=== PATIENT | male | born 1955 ===

== ENCOUNTER 2016-09-16 10:25 | Emergency (ER) | payer OTHER ==
--- NOTE | 2016-09-16 11:23 | UC ---
Ofelia Gross Claudia, scribed for Rommel Lora MD on 09/16/16 at 1052 . Knee Pain HPI - HPI Summary HPI Summary: 60 year old male presents to the [facility] with left knee weakness. Pt notes gradual onset of weakness over the past several months, pt denies any trauma to the knee. He states that he has been wearing a brace and walking with a cane to prevent the weakness. Pt notes that he works all day on his feet on a concrete floor. Pt denies any associated Sx of fever, chills, CP, Palpations, SOB, MEHTA. He does admit to occasional right sided back pain since he tries to put most of his weight on his right leg since the left leg is weak. Pt also admits to right and left calf ache. Pt also notes some numbness/tingling to his right foot. - History of Current Complaint Chief Complaint: UCLowerExtremity Stated Complaint: KNEE COMPLAINT Time Seen by Provider: 09/16/16 10:41 Hx Obtained From: Patient Onset/Duration: Gradual Onset, Lasting Weeks, Still Present Character: Aching - weakness Aggravating Factor(s): Nothing Alleviating Factor(s): Nothing Associated Signs And Symptoms: Positive: Weakness - Allergies/Home Medications Allergies/Adverse Reactions: Allergies Allergy/AdvReac Type Severity Reaction Status Date / Time No Known Allergies Allergy Verified 09/16/16 10:35 Home Medications: Home Medications NK [No Home Medications Reported] 09/16/16 [History Confirmed 09/16/16] PMH/Surg Hx/FS Hx/Imm Hx Previously Healthy: Yes - Surgical History Surgical History: None - Family History Known Family History: Positive: Diabetes - Social History Occupation: Employed Full-time Alcohol Use: Rare Substance Use Type: None Smoking Status (MU): Light Every Day Tobacco Smoker Amount Used/How Often: 3-4 per day Review of Systems Constitutional: Negative - NO FEVER, CHILLS Skin: Negative Eyes: Negative ENT: Negative Respiratory: Negative - NO SOB Cardiovascular: Negative - NO CP, PALPITATIONS Gastrointestinal: Negative - NO ABD PAIN Genitourinary: Negative Motor: Negative Neurovascular: Negative Musculoskeletal: Other: - knee pain Neurological: Headache - NO MEHTA, Paresthesia, Numbness Psychological: Negative All Other Systems Reviewed And Are Negative: Yes Physical Exam Triage Information Reviewed: Yes Appearance: Ill-Appearing, Thin Vital Signs: Initial Vital Signs Temp 98.7 F 09/16/16 10:32 Pulse 120 09/16/16 10:32 Resp 20 09/16/16 10:32 BP 229/147 09/16/16 10:32 Pulse Ox 99 09/16/16 10:32 Vital Signs Reviewed: Yes Eyes: Positive: Conjunctiva Clear ENT: Positive: Normal ENT inspection, Hearing grossly normal, Pharynx normal, Other: - DRY MOUTH AND LIPS Neck: Positive: Supple, Nontender, No Lymphadenopathy Respiratory: Positive: Chest non-tender, Lungs clear, Normal breath sounds Cardiovascular: Positive: Tachycardia, Other: - IRR / IRR Abdomen Description: Positive: Nontender, Soft. Negative: CVA Tenderness (R), CVA Tenderness (L), Distended Bowel Sounds: Positive: Present Musculoskeletal Exam: Normal Musculoskeletal: Positive: Strength Intact, Edema @ - BILATERAL LOWER EXT Skin Exam: Normal Diagnostics - EKG Cardiac Rate: Tachycardia - rate: 124 beats/min Cardiac Rhythm: AFib: New - no previous EKG to compare Knee Pain Course/Dx - Course Course Of Treatment: AFIB/ HYPERTENSIVE URGENCY ,. WILL TRANSFER TO [facility] ,. SPOKE TO DR BREEN ABOUT THE THE TRANSFER - Differential Dx/Diagnosis Provider Diagnoses: AFIB. HYPERTENSIVE URGENCY - Physician Notifications Discussed Patient Care With: Discussed care of pt with Dr. Santiago at [facility] whom is aware of transfer Time Discussed With Above Provider: 11:14 Discharge - Discharge Plan Condition: Fair Disposition: TRANS HIGHER LVL OF CARE FAC Discharge Disposition Comment: Transferred to [facility] via EMS for further evaluation. Referrals: No Primary Care Phys,NOPCP [Primary Care Provider] - The documentation as recorded by the Ofelia patterson Claudia accurately reflects the service I personally performed and the decisions made by me, Rommel Lora MD.
[2016-09-16 11:30] VITALS: BP 200/130
== END 2016-09-16 11:30 | disposition short-term general hospital (02) ==
LOC: UCEAST 10:25
DX: I48.91 Unspecified atrial fibrillation (principal); I16.0 Hypertensive urgency; Z72.0 Tobacco use
CPT/HCPCS: 93005; 99203; G0463

== ENCOUNTER 2016-09-16 11:56 | Observation (INO) | payer OTHER ==
[2016-09-16] MEDS ORDERED: NS 0.9% 1000 ML* 1,000 ML IV SCH ×3 (12:00→15:30)
[2016-09-16 12:21] LABS: Hematocrit 46 % (42-52); Hemoglobin 15.8 g/dl (14.0-18.0); Mean Corpuscular HGB Conc 34 g/dl (31-36); Mean Corpuscular Hemoglobin 31 pg (27-31); Mean Corpuscular Volume 92 fL (80-94); Mean Platelet Volume 7 um3 (7.4-10.4); Red Blood Count 5.06 10^6/ul (4.0-5.4); Red Cell Distribution Width 16 % (10.5-15); White Blood Count 11.4 10^3/ul (3.5-10.8)
[2016-09-16 12:26] LABS: Albumin 3.8 g/dL (3.2-5.2); BUN/Creatinine Ratio 27.3 (8-20); C Reactive Protein 7.93 mg/L (< 5.00); Calcium 9.4 mg/dL (8.6-10.3); EGFR African American 56.4 (>60); EGFR Non-African American 43.8 (>60); Globulin 3.5 g/dL (2-4); Magnesium 1.6 mg/dL (1.9-2.7); Potassium 3.2 mmol/L (3.5-5.0); Total Bilirubin 0.7 mg/dL (0.2-1.0); Total Protein 7.3 g/dL (6.4-8.9)
[2016-09-16 12:32] LABS: Troponin I 0.11 ng/mL (<0.04)
[2016-09-16 12:35] LABS: TSH (Thyroid Stimulating Horm) 8.5 mcIU/mL (0.34-5.60)
--- NOTE | 2016-09-16 12:36 | RAD ---
INDICATION: Tachycardia COMPARISON: None TECHNIQUE: An AP portable view obtained at 1215 hours is submitted. FINDINGS: Bones/Soft Tissues: There are no acute bony findings. Cardiomediastinal: The heart and central pulmonary vessels are mildly prominent. There may be a mild component of interstitial congestion. Lungs: There are no focal infiltrates. Pleura: There are no pleural effusions. Other: None IMPRESSION: SUSPECT MILD INTERSTITIAL CONGESTION.
[2016-09-16] MEDS ORDERED: Aspirin Low Dose CHEW TAB* 81 MG PO ONE (13:18)
[2016-09-16] MEDS ORDERED: Diltiazem IV VIAL* 125 MG in D5W 100 ML BAG* 100 ML IV ONE (13:19)
[2016-09-16] MEDS ORDERED: Diltiazem IV* 5 MG/ML 5 ML VIAL (for loading dose/IV Push) (25 MG) IV SLOW PU ONE (13:19)
[2016-09-16] MEDS ORDERED: Furosemide IV* 10 MG/ML 2 ML VIAL (20 MG) IV SLOW PU ONE (13:21)
[2016-09-16 14:02] LABS: Urine Bacteria Absent (Absent); Urine Bilirubin Negative (Negative); Urine Glucose Negative (Negative); Urine Nitrite Negative (Negative)
[2016-09-16] MEDS ORDERED: amLODIPine TAB* 5 MG PO ONE (14:09)
[2016-09-16] MEDS ORDERED: Diltiazem TAB* 30 MG PO ONE ×2 (14:10→14:46)
[2016-09-16] MEDS ORDERED: Acetaminophen TAB* 325 MG PO PRN (14:54)
[2016-09-16] MEDS ORDERED: Magnesium Sulf 4 GM/100 ML IV* 4,000 MG/100 ML BAG IVPB ONE (14:54)
[2016-09-16] MEDS ORDERED: LORazepam TAB(*) 1 MG PO SCH (15:00)
--- NOTE | 2016-09-16 15:16 | RAD ---
HISTORY: Edema COMPARISONS: None relevant TECHNIQUE: Multiple transverse and longitudinal ultrasound images were obtained of the bilateral lower extremities from the level of the common femoral vein inferiorly through to the infrapopliteal veins using grayscale, color Doppler, and spectral Doppler imaging with and without compression and with augmentation. FINDINGS: VEINS: The venous system of the bilateral lower extremities is compressible throughout its course, with normal flow on color Doppler imaging and normal response to augmentation on spectral Doppler imaging. SOFT TISSUES: Unremarkable. OTHER FINDINGS: Also noted is occlusion of the right superficial femoral artery in the midportion IMPRESSION: 1. NO RIGHT LOWER EXTREMITY DEEP VEIN THROMBOSIS. 2. NO LEFT LOWER EXTREMITY DEEP VEIN THROMBOSIS 3. 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
[2016-09-16] MEDS: Potassium Chlor TAB* 20 MEQ TAB.ER PO SCH ×2 (16:11→20:15)
[2016-09-16] MEDS: Thiamine TAB* 100 MG TAB PO SCH (16:11)
[2016-09-16] MEDS: Folic Acid TAB* 1 MG PO SCH (16:11)
[2016-09-16] MEDS: Multivitamins/Minerals TAB PO SCH (16:11)
--- NOTE | 2016-09-16 16:33 | ED ---
Fili Gross Benjamin, scribed for Jose Santiago MD on 09/16/16 at 1322 . Palpitations / Dysrhythmia - HPI Summary HPI Summary: 60yo male comes from for new onset A-fib and ST elevation in EKG. Pt went to originally for left knee weakness, but upon visit, pt was sent to ED for having afib and elevated ST segment. Pt denies CP or any pain in knee. Pt is able to move his left leg but notes some swelling in legs. - History of Current Complaint Chief Complaint: EDDysrhythmPalp Time Seen by Provider: 09/16/16 11:59 Hx Obtained From: Patient Onset/Duration: Sudden Onset, Lasting Hours, Still Present Timing: Constant Severity Initially: Mild Severity Currently: Mild Character: Irregular Aggravating: Nothing Alleviating: Nothing Associated Signs & Symptoms: Negative - Allergy/Home Medications Allergies/Adverse Reactions: Allergies Allergy/AdvReac Type Severity Reaction Status Date / Time No Known Allergies Allergy Verified 09/16/16 10:35 PMH/Surg Hx/FS Hx/Imm Hx Previously Healthy: Yes Infectious Disease History: No Infectious Disease History: Denies: Traveled Outside the [place] in Last 30 Days - Family History Known Family History: Positive: Hypertension, Diabetes - Social History Occupation: Employed Full-time Lives: Alone Alcohol Use: Rare Substance Use Type: Reports: Excessive Caffeine Substance Use Comment - Amount & Last Used: 4 cups first thing this AM, drinks coffee all day Smoking Status (MU): Light Every Day Tobacco Smoker Amount Used/How Often: 3-4 per day Review of Systems Constitutional: Negative Eyes: Negative ENT: Negative Positive: Palpitations. Negative: Chest Pain Respiratory: Negative Gastrointestinal: Negative Genitourinary: Negative Musculoskeletal: Negative Skin: Negative Positive: Weakness - left knee Psychological: Normal All Other Systems Reviewed And Are Negative: Yes Physical Exam Triage Information Reviewed: Yes Vital Signs On Initial Exam: Initial Vitals BP 217/145 09/16/16 12:02 Vital Signs Reviewed: Yes Appearance: Positive: Well-Appearing, No Pain Distress, Well-Nourished Skin: Positive: Warm, Skin Color Reflects Adequate Perfusion, Dry Head/Face: Positive: Normal Head/Face Inspection Eyes: Positive: Normal ENT: Positive: Normal ENT inspection, Hearing grossly normal Neck: Positive: Supple, Nontender Respiratory/Lung Sounds: Positive: Breath Sounds Present, Other - crankles at the base of the lungs Cardiovascular: Positive: IRR - irregularly irregular Abdomen Description: Positive: Nontender, No Organomegaly, Soft Bowel Sounds: Positive: Present Musculoskeletal: Positive: Other - bilateral pedal edema, no calf tenderness Neurological: Positive: Normal - no neurological deficit, Sensory/Motor Intact, Alert, Oriented to Person Place, Time, CN Intact II-III Psychiatric: Positive: Affect/Mood Appropriate - Oliverio Coma Scale Coma Scale Total: 15 Diagnostics - Vital Signs Vital Signs Temp Pulse Resp BP Pulse Ox 09/16/16 13:00 118 28 221/140 97 09/16/16 12:30 106 28 241/131 95 09/16/16 12:22 26 209/132 09/16/16 12:05 98.1 F 102 22 217/145 95 09/16/16 12:03 114 19 96 09/16/16 12:02 217/145 - Laboratory Lab Results: Lab Results 09/16/16 09/16/16 09/16/16 Range/Units 11:15 11:15 11:15 WBC 11.4 H (3.5-10.8) 10^3/ul RBC 5.06 (4.0-5.4) 10^6/ul Hgb 15.8 (14.0-18.0) g/dl Hct 46 (42-52) % MCV 92 (80-94) fL MCH 31 (27-31) pg MCHC 34 (31-36) g/dl RDW 16 H (10.5-15) % Plt Count 168 (150-450) 10^3/ul MPV 7 L (7.4-10.4) um3 Neut % (Auto) 82.2 (38-83) % Lymph % (Auto) 9.4 L (25-47) % [place] % (Auto) 7.4 (1-9) % Eos % (Auto) 0.4 (0-6) % Baso % (Auto) 0.6 (0-2) % Absolute Neuts (auto) 9.4 H (1.5-7.7) 10^3/ul Absolute Lymphs (auto) 1.1 (1.0-4.8) 10^3/ul Absolute Monos (auto) 0.8 (0-0.8) 10^3/ul Absolute Eos (auto) 0 (0-0.6) 10^3/ul Absolute Basos (auto) 0.1 (0-0.2) 10^3/ul Absolute Nucleated RBC 0 10^3/ul Nucleated RBC % 0 INR (Anticoag Therapy) 0.96 (0.89-1.11) APTT 27.2 (26.0-36.3) seconds D-Dimer, Quantitative 430 H (Less Than 230) ng/mL Sodium 135 (133-145) mmol/L Potassium 3.2 L (3.5-5.0) mmol/L Chloride 99 L (101-111) mmol/L Carbon Dioxide 25 (22-32) mmol/L Anion Gap 11 (2-11) mmol/L BUN 44 H (6-24) mg/dL Creatinine 1.61 H (0.67-1.17) mg/dL Est GFR ( Amer) 56.4 (>60) Est GFR (Non-Af Amer) 43.8 (>60) BUN/Creatinine Ratio 27.3 H (8-20) Glucose 132 H (70-100) mg/dL Lactic Acid (0.5-2.0) mmol/L Calcium 9.4 (8.6-10.3) mg/dL Magnesium 1.6 L (1.9-2.7) mg/dL Total Bilirubin 0.70 (0.2-1.0) mg/dL AST 41 H (13-39) U/L ALT 28 (7-52) U/L Alkaline Phosphatase 105 H (34-104) U/L Total Creatine Kinase 132 (10-223) U/L CK-MB (CK-2) 10.2 H (0.6-6.3) ng/mL Troponin I 0.11 H* (<0.04) ng/mL C-Reactive Protein 7.93 H (< 5.00) mg/L B-Natriuretic Peptide ( - 100) pg/mL Total Protein 7.3 (6.4-8.9) g/dL Albumin 3.8 (3.2-5.2) g/dL Globulin 3.5 (2-4) g/dL Albumin/Globulin Ratio 1.1 (1-3) Lipase 13 (11.0-82.0) U/L TSH 8.50 H (0.34-5.60) mcIU/mL 09/16/16 09/16/16 Range/Units 11:15 11:15 WBC (3.5-10.8) 10^3/ul RBC (4.0-5.4) 10^6/ul Hgb (14.0-18.0) g/dl Hct (42-52) % MCV (80-94) fL MCH (27-31) pg MCHC (31-36) g/dl RDW (10.5-15) % Plt Count (150-450) 10^3/ul MPV (7.4-10.4) um3 Neut % (Auto) (38-83) % Lymph % (Auto) (25-47) % [place] % (Auto) (1-9) % Eos % (Auto) (0-6) % Baso % (Auto) (0-2) % Absolute Neuts (auto) (1.5-7.7) 10^3/ul Absolute Lymphs (auto) (1.0-4.8) 10^3/ul Absolute Monos (auto) (0-0.8) 10^3/ul Absolute Eos (auto) (0-0.6) 10^3/ul Absolute Basos (auto) (0-0.2) 10^3/ul Absolute Nucleated RBC 10^3/ul Nucleated RBC % INR (Anticoag Therapy) (0.89-1.11) APTT (26.0-36.3) seconds D-Dimer, Quantitative (Less Than 230) ng/mL Sodium (133-145) mmol/L Potassium (3.5-5.0) mmol/L Chloride (101-111) mmol/L Carbon Dioxide (22-32) mmol/L Anion Gap (2-11) mmol/L BUN (6-24) mg/dL Creatinine (0.67-1.17) mg/dL Est GFR ( Amer) (>60) Est GFR (Non-Af Amer) (>60) BUN/Creatinine Ratio (8-20) Glucose (70-100) mg/dL Lactic Acid 1.8 (0.5-2.0) mmol/L Calcium (8.6-10.3) mg/dL Magnesium (1.9-2.7) mg/dL Total Bilirubin (0.2-1.0) mg/dL AST (13-39) U/L ALT (7-52) U/L Alkaline Phosphatase (34-104) U/L Total Creatine Kinase (10-223) U/L CK-MB (CK-2) (0.6-6.3) ng/mL Troponin I (<0.04) ng/mL C-Reactive Protein (< 5.00) mg/L B-Natriuretic Peptide 2865 H ( - 100) pg/mL Total Protein (6.4-8.9) g/dL Albumin (3.2-5.2) g/dL Globulin (2-4) g/dL Albumin/Globulin Ratio (1-3) Lipase (11.0-82.0) U/L TSH (0.34-5.60) mcIU/mL Result Diagrams: 09/16/16 11:15 09/16/16 11:15 Lab Statement: Any lab studies that have been ordered have been reviewed, and results considered in the medical decision making process. - Radiology CXR Xray Interpretation: Positive (See Comments) - IMPRESSION: SUSPECT MILD INTERSTITIAL CONGESTION. Radiology Interpretation Completed By: Radiologist - EKG 1207. Cardiac Rate: Tachycardia - 103bpm EKG Rhythm: Atrial Fibrillation - rapid afib Ectopy: : PVCs EKG Interpretation: LVH Course/Dx - Course Course Of Treatment: discussed with Dr. Terrazas at 1313. ADMIT HOSPITALIST STABLE. - Diagnoses Provider Diagnoses: New onset a-fib, CHF (congestive heart failure), Troponin level elevated - Critical Care Time Critical Care Time: 30-74 min Discharge - Discharge Plan Condition: Stable Disposition: ADMITTED TO [facility] The documentation as recorded by the Fili patterson Benjamin accurately reflects the service I personally performed and the decisions made by me, Jose Santiago MD.
--- NOTE | 2016-09-16 16:44 | ECHO ---
Patient: JULITA OBRIEN [facility] Rec#: [id number] : 1955 Date: 09/16/2016 Age: 60y Height: 177.8 cm / 70.0 in Weight: 72.57 kg / 159.9 lbs Sex: M BSA: 1.9 Room#: 445 Admit Date#: 09/16/2016 Type: Inpatient Referring: Stephy Azevedo NP Reading: Justin Morse MD [employer]: Shakira Echeverria RDCS,RDMS Transthoracic Echocardiogram Indication: AFIB BP: 152/137 HR: 78 Rhythm: A-Fib Findings History: Smoker Technical Comments: The study quality is fair. Completed 1630 Left Ventricle: The left ventricular chamber size is normal. Moderate to severe concentric left ventricular hypertrophy is observed. There is global hypokinesis of the left ventricle with minor regional variation. There is moderate to severely decreased left ventricular systolic function. The estimated ejection fraction is 30-35%. There is septal flattening of the interventricular septum consistent with right ventricular volume or pressure overload. The assessment of diastolic function is non-diagnostic. Left Atrium: The left atrium is severely dilated. Right Ventricle: The right ventricle is mild to moderately dilated. The right ventricular global systolic function is moderately reduced. Right Atrium: The right atrial cavity size is severely dilated. Atrial septal defect is demonstrated by color Doppler. Aortic Valve: The aortic valve is trileaflet. The aortic valve leaflets are mildly thickened. There is moderate thickening of the right coronary cusp. There is a trace of aortic regurgitation. There is no evidence of aortic stenosis. Mitral Valve: There is mitral annular calcification. The mitral valve leaflets are mildly thickened. There is a trace of mitral regurgitation. There is no evidence of mitral stenosis. Tricuspid Valve: The tricuspid valve leaflets are normal. There is moderate tricuspid regurgitation. The right ventricular systolic pressure is estimated at 61 mmHg. There is evidence of severe pulmonary hypertension. Pulmonic Valve: There is no evidence of pulmonic valve thickening. There is mild pulmonic regurgitation. Pericardium: There is no significant pericardial effusion. Aorta: The aortic root appears normal. There is no dilatation of the aortic arch. Pulmonary Artery: The main pulmonary artery is not well visualized. Venous: The inferior vena cava is dilated. There is less than 50% respiratory change in the inferior vena cava dimension. Summary: There was not any prior study for comparison. Conclusions Moderate to severe concentric left ventricular hypertrophy is observed. There is global hypokinesis of the left ventricle with minor regional variation. There is moderate to severely decreased left ventricular systolic function. The estimated ejection fraction is 30-35%. There is septal flattening of the interventricular septum consistent with right ventricular volume or pressure overload. The right ventricular global systolic function is moderately reduced. The right atrial cavity size is severely dilated. Atrial septal defect is demonstrated by color Doppler. The aortic valve leaflets are mildly thickened. There is a trace of aortic regurgitation. The mitral valve leaflets are mildly thickened. There is a trace of mitral regurgitation. There is moderate tricuspid regurgitation. There is evidence of severe pulmonary hypertension. There is no significant pericardial effusion. report called to Stephy Azevedo NP Measurements Name Value Normal Range RVIDd (AP) 2D 3.9 cm (0.9 - 2.6) RVDdMajor (2D) 4.4 cm (2.2 - 4.4) RAd ISD 4CH 6 cm (3.4 - 4.9) RA (A4C)W 7.2 cm (2.9 - 4.6) IVSd (2D) 1.9 cm (0.6 - 1) LVPWd (2D) 1.9 cm (0.6 - 1) LVIDd (2D) 3.8 cm (3.6 - 5.4) LVIDs (2D) 3.3 cm - LV FS (2D) 12 % (25 - 45) Aortic Annulus 2 cm (1.4 - 2.6) Ao root diameter (2D) 2.3 cm (2.1 - 3.5) Ascending Ao 2.4 cm (2.1 - 3.4) Aortic arch 2 cm (1.8 - 3.4) LA dimension (AP) 2D 5 cm (2.3 - 3.8) LAd ISD 4CH 7.2 cm (2.9 - 5.3) LA ISD 4CH W 4.6 cm (2.5 - 4.5) Name Value Normal Range LA ESV SP 4CH (A/L) 91.44 ml - LA ESV SP 2CH (A/L) 103.17 ml - LA ESV BP (A/L) 102.49 ml - LA ESV BP (A/L) index 54 ml/m2 - LA ESV SP 4CH (MOD) 86.54 ml - LA ESV SP 2CH (MOD) 100.3 ml - Name Value Normal Range MV E-wave Vmax 1 m/sec - MV deceleration time 152.3 msec - LV lateral e' Vmax 0.04 m/sec - LV E:e' lateral ratio 25 ratio - Name Value Normal Range AV Vmax 1 m/sec - AV peak gradient 4 mmHg - LVOT Vmax 0.6 m/sec - LVOT peak gradient 1.4 mmHg - Name Value Normal Range TR Vmax 3.4 m/sec - TR peak gradient 46 mmHg - RAP 15 mmHg - RVSP 61 mmHg - IVC diameter 2.2 cm - Name Value Normal Range PV Vmax 1 m/sec - PV peak gradient 4 mmHg -
--- NOTE | 2016-09-16 17:19 | RAD ---
Indication: Atrial fibrillation. Elevated d-dimer. Renal insufficiency precludes CT angiogram. Comparison: Chest radiograph of the same date. Bilateral lower extremity venous ultrasound of the same date without evidence for DVT. Technique: Following administration of 10.270 mCi xenon-133 by inhalation anterior and posterior ventilation images were obtained. Following the administration of 6.180 mCi of Tc-99m macroaggregated albumin, perfusion images were obtained in multiple projections. Report: The ventilation pattern is uniform with evidence for mild air trapping. Negative for segmental or subsegmental perfusion defects. IMPRESSION: 1. No perfusion defects evident to raise concern for pulmonary embolism. 2. Bilateral air trapping indicating obstructive lung disease. 3. Prominent central pulmonary vasculature with peripheral attenuation suggests probable pulmonary arterial hypertension.
[2016-09-16] MEDS: Diltiazem TAB* 60 MG PO SCH (17:30)
[2016-09-16] MEDS ORDERED: Rivaroxaban TAB(*) 20 MG TAB PO SCH (18:00)
[2016-09-16] MEDS ORDERED: hydrALAZINE IV* 20 MG/ML VIAL IV SLOW PU PRN (22:43)
[2016-09-17] MEDS: Diltiazem TAB* 60 MG PO SCH ×3 (00:14→11:37)
--- NOTE | 2016-09-17 03:12 | HP ---
HISTORY AND PHYSICAL: DATE OF ADMISSION: 09/16/16 PRIMARY CARE PHYSICIAN: None. ATTENDING PHYSICIAN: Dr. Armani Portillo * (dictation provided by Stephy Azevedo NP). CHIEF COMPLAINT: AFib. HISTORY OF PRESENT ILLNESS: Mr. Lopez is a 60-year-old male with no known past medical history as he is not followed with medical care, who originally presented to [facility] with concern of left knee weakness. Mr. 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 On arrival to [facility], the patient was found to be in atrial fibrillation with a heart rate of about 120 with a blood pressure running systolically at least 220. The patient was immediately transferred to [facility]. Mr. Lopez states that he has had no complaints. He does report that he does have feel of rapid heart rate with palpitations at times but he felt that this was just normal part of aging. He denies any chest pain with activity. He denies significant dyspnea with exertion. He has no nausea or abdominal pain. He has been eating and drinking normally. He does report some swelling to bilateral lower extremities, which he uses compression stockings for. He reports having been a smoker and taking significant amount of alcohol in prior years but states he has not drank anything this year and is only smoking less than 5 cigarettes per day. In the emergency room, the patient was confirmed to be in atrial fibrillation with heart rate about 120. He responded well to Cardizem bolus and Cardizem drip with heart rate into the 70s. However, his blood pressure remained elevated as high as 220. Chest x-ray showed concern for pulmonary vascular congestion. Venous Doppler studies showed concern for occlusion of the right superficial femoral artery in the mid portion. Labs showed essentially normal white blood cell count at 11.4. D- dimer was elevated to 430. His potassium is low at 3.2 as well as his magnesium, which is at 1.6. His BUN and creatinine are elevated to 44 and 1.61 respectively. His troponin is 0.11. CRP 7.93. BNP 2865. PAST MEDICAL HISTORY: None as the patient does not follow medical care. SOCIAL HISTORY: The patient is a current smoker but states he has cut back dramatically and smoking less than 5 cigarettes per day. He also states he used to drink alcohol very heavily but has not done so in the past year. He lives alone. He reports that his sister, Jena Jones, would be the healthcare proxy. REVIEW OF SYSTEMS: A 14-point review of systems was completed with Mr. Lopez and all those not mentioned above were negative. PHYSICAL EXAMINATION GENERAL: Mr. Lopez is sitting up in the bed. He is in no acute distress. VITAL SIGNS: Temperature 98.4, heart rate 81, respiratory rate 16, O2 saturation 99% on room air, and blood pressure 160/90. LUNGS: Clear to auscultation bilaterally with no accessary muscle use and good aeration. HEART: S1, S2 and irregular. There is no murmur, rub, or gallop appreciated. ABDOMEN: Soft and nontender with bowel sounds positive x4. EXTREMITIES: The patient has very trace edema to bilateral lower extremities. Pulses are strong with Doppler. NEUROLOGIC: He is alert, he is oriented x3. He moves all extremities equally. There is no facial asymmetry or focal weakness. Extraocular movements are intact. SKIN: Intact. DIAGNOSTIC STUDIES/LAB DATA: Sodium 135, potassium 3.2, chloride 99, serum bicarbonate 25, BUN 44, creatinine 1.61, glucose 132, lactic acid 1.8, magnesium 1.6. Troponin 0.11. CRP 7.93. BNP 2865. WBC 11.4, hemoglobin 15.8 , hematocrit 46, platelet count 168. D-dimer 430. Urine shows 3+ protein. ASSESSMENT AND PLAN: Mr. Lopez is a 60-year-old male who has not followed with medical care, who presents today to the hospital from [facility] after being evaluated there for left knee weakness, found to have atrial fibrillation and severe hypertension. He is asymptomatic on both counts. Our plans are for observation in the hospital for the followin. Atrial fibrillation: The patient responded well to Cardizem and will switch over to Cardizem orally now. Plan to treat with 60 mg q.6 hours and adjust as needed both for heart rate and blood pressure control. His risk factors for AFib are multiple. He has known history of smoking. He reports drinking significant amount of caffeine on a regular basis. He does deny drinking alcohol with me today but I do continue to have a suspicion that perhaps he is a continued drinker. He also has a low potassium and low magnesium. I have counseled him about decrease in his caffeine intake and also any alcohol he might be drinking. Plan to replete his potassium and magnesium. He will have a transthoracic echocardiogram. I have counseled him about smoking cessation. The patient's CHADS VASc2 score on arrival is only 1 as he has only known history of hypertension. We will have to re- evaluate this closely after his echocardiogram as if he were to have CHF, he would qualify for anticoagulation for stroke prevention. 2. Hypertension: The patient's blood pressure is quite elevated but he is asymptomatic. He has had Cardizem orally and I have also added on amlodipine. Additional agents can be added as needed. On last check, his systolic blood pressure was running in the 180s. Again we are checking transthoracic echocardiogram as I am quite concerned that he will have a significant cardiomyopathy with this uncontrolled hypertension long term care phlebotomist. 3. Elevated troponin. The patient's troponin is 0.11. He is asymptomatic. I questioned whether or not this could be related to demand ischemia in the setting of severe hypertension and uncontrolled AFib. I plan to trend that. Patient will have an echocardiogram and he will be monitored on Telemetry. Plan to add on lipid profile. 4. Hyperglycemia. Patient's blood sugar is slightly elevated to 132, plan to add on hemoglobin A1c. 5. Kidney disease. Patient's BUN and creatinine are elevated. I suspect this is likely reflective of chronic kidney disease but we will need to trend that. 6. Question of congestive heart failure. Patient's BNP is elevated at 2865 and his chest x-ray shows mild pulmonary vascular congestion. Patient is asymptomatic on my examination today. He is getting a transthoracic echocardiogram. He did receive 20 mg of Lasix in the ED. Plan to continue with that based on the clinical course. 7. Occlusion to femoral artery. The patient has warm bilateral lower extremities with positive pulses. I suspect this is chronic peripheral vascular disease and see no evidence of acute limb ischemia. Patient will be encouraged to follow up outpatient with Vascular Surgery for further evaluation. 8. Deep venous thrombosis prophylaxis with heparin subcu. 9. Disposition: To Telemetry. TIME SPENT: Approximately 75 minutes was spent in the admission of this patient , more than half the time spent with the patient at the bedside reviewing the events leading up to this hospitalization, performing the physical examination, reviewing the plan of care. STEPHY AZEVEDO, PROC TECH [id number]/[facility] #: [id number] [facility] PSYCH[facility]RIC CENTERKarl
[2016-09-17 06:18] LABS: BUN/Creatinine Ratio 29.4 (8-20); Calcium 8.8 mg/dL (8.6-10.3); EGFR African American 79.9 (>60); EGFR Non-African American 62.1 (>60); HDL Cholesterol 35.9 mg/dL; Magnesium 2.2 mg/dL (1.9-2.7); Potassium 3.5 mmol/L (3.5-5.0)
[2016-09-17] MEDS: Multivitamins/Minerals TAB PO SCH (08:04)
[2016-09-17] MEDS: Thiamine TAB* 100 MG TAB PO SCH (08:04)
[2016-09-17] MEDS: Folic Acid TAB* 1 MG PO SCH (08:05)
[2016-09-17] MEDS ORDERED: Potassium Chlor TAB* 20 MEQ TAB.ER PO ONE (08:51)
[2016-09-17] MEDS ORDERED: Aspirin TAB* 325 MG PO SCH (09:00)
[2016-09-17] MEDS ORDERED: amLODIPine TAB* 5 MG PO SCH (09:00)
[2016-09-17] MEDS ORDERED: Furosemide TAB* 20 MG PO SCH (09:00)
--- NOTE | 2016-09-17 10:30 | PN ---
Subjective Date of Service: 09/17/16 Interval History: Mr. Lopez states that he is feeling quite well though he remains shocked about the heart problems discovered during this hospitalizations. He denies chest pain, SOB, nausea, or abdominal pain. He is eager to get home to shower and shave. Objective Active Medications: Acetaminophen (Tylenol Tab*) 650 mg PO Q4H PRN Amlodipine Besylate (Norvasc Tab*) 5 mg PO DAILY [facility] Aspirin (Aspirin Tab*) 325 mg PO DAILY [facility] Diltiazem HCl (Cardizem Tab*) 60 mg PO Q6HR [facility] Folic Acid (Folvite Tab*) 1 mg PO DAILY [facility] Furosemide (Lasix Tab*) 20 mg PO DAILY [facility] Hydralazine HCl (Apresoline Iv*) 10 mg IV SLOW PU Q6H PRN Lorazepam (Ativan Tab(*)) 0 mg PO .PER WAM SCORE [facility] Multivitamins/Minerals (Theragran/Minerals Tab*) 1 tab PO DAILY [facility] Rivaroxaban (Xarelto (*)) 20 mg PO DAILY@1800 [facility] Thiamine HCl (Vitamin B-1 Tab*) 100 mg PO DAILY [facility] Vital Signs 09/16/16 09/16/16 09/16/16 13:36 13:41 13:50 Temperature Pulse Rate 78 74 72 Respiratory 19 22 23 Rate Blood Pressure 150/104 196/124 217/114 (mmHg) O2 Sat by Pulse 95 95 95 Oximetry 09/16/16 09/16/16 09/16/16 14:00 14:10 14:28 Temperature Pulse Rate 74 84 76 Respiratory 27 22 20 Rate Blood Pressure 185/105 217/130 (mmHg) O2 Sat by Pulse 95 95 97 Oximetry 09/16/16 09/16/16 09/16/16 14:30 14:40 14:48 Temperature Pulse Rate 77 93 88 Respiratory 24 16 20 Rate Blood Pressure 205/130 152/137 152/137 (mmHg) O2 Sat by Pulse 96 93 Oximetry 09/16/16 09/16/16 09/16/16 14:49 15:07 16:06 Temperature 97.6 F 98.4 F Pulse Rate 84 75 Respiratory 19 20 19 Rate Blood Pressure 213/114 203/123 (mmHg) O2 Sat by Pulse 96 95 Oximetry 09/16/16 09/16/16 09/16/16 17:29 17:35 19:38 Temperature 98.1 F 98.4 F 98.0 F Pulse Rate 81 81 70 Respiratory 14 16 20 Rate Blood Pressure 160/90 179/102 (mmHg) O2 Sat by Pulse 99 99 96 Oximetry 09/16/16 09/16/16 09/16/16 20:00 21:45 22:14 Temperature 97.9 F Pulse Rate 75 Respiratory 20 20 Rate Blood Pressure 204/125 210/110 (mmHg) O2 Sat by Pulse 100 Oximetry 09/16/16 09/17/16 09/17/16 23:16 01:09 03:15 Temperature 97.9 F 98.2 F 98.2 F Pulse Rate 72 78 68 Respiratory 20 20 20 Rate Blood Pressure 178/102 186/116 142/81 (mmHg) O2 Sat by Pulse 98 99 97 Oximetry 09/17/16 09/17/16 05:14 07:56 Temperature 98.1 F 98.8 F Pulse Rate 69 70 Respiratory 20 20 Rate Blood Pressure 146/78 180/92 (mmHg) O2 Sat by Pulse 98 97 Oximetry Oxygen Devices in Use Now: None Appearance: Male sitting up in chair in NAD Eyes: No Scleral Icterus Ears/Nose/Mouth/Throat: Mucous Membranes Moist Neck: Trachea Midline Respiratory: Symmetrical Chest Expansion and Respiratory Effort, Clear to Auscultation Cardiovascular: NL Sounds; No Murmurs; No JVD, - - +1 edema BLE Abdominal: NL Sounds; No Tenderness; No Distention Lymphatic: No Cervical Adenopathy Skin: No Rash or Ulcers Neurological: Alert and Oriented x 3, NL Muscle Strength and Tone Nutrition: Taking PO's Result Diagrams: 09/16/16 11:15 09/17/16 05:39 Additional Lab and Data: Lab Results 09/16/16 09/16/16 09/16/16 Range/Units 11:15 11:15 11:15 WBC 11.4 H (3.5-10.8) 10^3/ul RBC 5.06 (4.0-5.4) 10^6/ul Hgb 15.8 (14.0-18.0) g/dl Hct 46 (42-52) % MCV 92 (80-94) fL MCH 31 (27-31) pg MCHC 34 (31-36) g/dl RDW 16 H (10.5-15) % Plt Count 168 (150-450) 10^3/ul MPV 7 L (7.4-10.4) um3 Neut % (Auto) 82.2 (38-83) % Lymph % (Auto) 9.4 L (25-47) % [place] % (Auto) 7.4 (1-9) % Eos % (Auto) 0.4 (0-6) % Baso % (Auto) 0.6 (0-2) % Absolute Neuts (auto) 9.4 H (1.5-7.7) 10^3/ul Absolute Lymphs (auto) 1.1 (1.0-4.8) 10^3/ul Absolute Monos (auto) 0.8 (0-0.8) 10^3/ul Absolute Eos (auto) 0 (0-0.6) 10^3/ul Absolute Basos (auto) 0.1 (0-0.2) 10^3/ul Absolute Nucleated RBC 0 10^3/ul Nucleated RBC % 0 INR (Anticoag Therapy) 0.96 (0.89-1.11) APTT 27.2 (26.0-36.3) seconds D-Dimer, Quantitative 430 H (Less Than 230) ng/mL Sodium 135 (133-145) mmol/L Potassium 3.2 L (3.5-5.0) mmol/L Chloride 99 L (101-111) mmol/L Carbon Dioxide 25 (22-32) mmol/L Anion Gap 11 (2-11) mmol/L BUN 44 H (6-24) mg/dL Creatinine 1.61 H (0.67-1.17) mg/dL Est GFR ( Amer) 56.4 (>60) Est GFR (Non-Af Amer) 43.8 (>60) BUN/Creatinine Ratio 27.3 H (8-20) Glucose 132 H (70-100) mg/dL Lactic Acid (0.5-2.0) mmol/L Calcium 9.4 (8.6-10.3) mg/dL Magnesium 1.6 L (1.9-2.7) mg/dL Total Bilirubin 0.70 (0.2-1.0) mg/dL AST 41 H (13-39) U/L ALT 28 (7-52) U/L Alkaline Phosphatase 105 H (34-104) U/L Total Creatine Kinase 132 (10-223) U/L CK-MB (CK-2) 10.2 H (0.6-6.3) ng/mL Troponin I 0.11 H* (<0.04) ng/mL C-Reactive Protein 7.93 H (< 5.00) mg/L B-Natriuretic Peptide ( - 100) pg/mL Total Protein 7.3 (6.4-8.9) g/dL Albumin 3.8 (3.2-5.2) g/dL Globulin 3.5 (2-4) g/dL Albumin/Globulin Ratio 1.1 (1-3) Lipase 13 (11.0-82.0) U/L TSH 8.50 H (0.34-5.60) mcIU/mL 09/16/16 09/16/16 Range/Units 11:15 11:15 WBC (3.5-10.8) 10^3/ul RBC (4.0-5.4) 10^6/ul Hgb (14.0-18.0) g/dl Hct (42-52) % MCV (80-94) fL MCH (27-31) pg MCHC (31-36) g/dl RDW (10.5-15) % Plt Count (150-450) 10^3/ul MPV (7.4-10.4) um3 Neut % (Auto) (38-83) % Lymph % (Auto) (25-47) % [place] % (Auto) (1-9) % Eos % (Auto) (0-6) % Baso % (Auto) (0-2) % Absolute Neuts (auto) (1.5-7.7) 10^3/ul Absolute Lymphs (auto) (1.0-4.8) 10^3/ul Absolute Monos (auto) (0-0.8) 10^3/ul Absolute Eos (auto) (0-0.6) 10^3/ul Absolute Basos (auto) (0-0.2) 10^3/ul Absolute Nucleated RBC 10^3/ul Nucleated RBC % INR (Anticoag Therapy) (0.89-1.11) APTT (26.0-36.3) seconds D-Dimer, Quantitative (Less Than 230) ng/mL Sodium (133-145) mmol/L Potassium (3.5-5.0) mmol/L Chloride (101-111) mmol/L Carbon Dioxide (22-32) mmol/L Anion Gap (2-11) mmol/L BUN (6-24) mg/dL Creatinine (0.67-1.17) mg/dL Est GFR ( Amer) (>60) Est GFR (Non-Af Amer) (>60) BUN/Creatinine Ratio (8-20) Glucose (70-100) mg/dL Lactic Acid 1.8 (0.5-2.0) mmol/L Calcium (8.6-10.3) mg/dL Magnesium (1.9-2.7) mg/dL Total Bilirubin (0.2-1.0) mg/dL AST (13-39) U/L ALT (7-52) U/L Alkaline Phosphatase (34-104) U/L Total Creatine Kinase (10-223) U/L CK-MB (CK-2) (0.6-6.3) ng/mL Troponin I (<0.04) ng/mL C-Reactive Protein (< 5.00) mg/L B-Natriuretic Peptide 2865 H ( - 100) pg/mL Total Protein (6.4-8.9) g/dL Albumin (3.2-5.2) g/dL Globulin (2-4) g/dL Albumin/Globulin Ratio (1-3) Lipase (11.0-82.0) U/L TSH (0.34-5.60) mcIU/mL Assess/Plan/Problems-Billing Assessment: Mr. Lopez is a 60 yo male with no known PMH as he has not followed with medical care who was admitted on 09/16/16 after being assessed at [facility] for left knee weakness when it was found that he had afib with RVR and uncontrolled hypertension with SBP 220s. - Patient Problems (1) Afib Comment: - Rate controlled on oral cardizem. Has remained asymptomatic throughout. - Xarelto started for CHADS-vasc score of 2 (htn and chf). - Echo found ASD with severe pulm hypertension and severe LVH. Suspect this plus his high caffeine intake and hypokalemia/hypomagnesemia contributed to afib. - Will need close follow up with Cardiology outpatient. (2) CHF (congestive heart failure) Comment: - Patient states that he is asymptomatic, had believed that decreased exercise tolerance just reflective of getting older. - EF found to be 30-35% with severe LVH and severe pulmonary hypertension, likely secondary to systemic htn and ASD respectively. - Continue low dose lasix given dramatically elevated BNP, pulmonary vascular congestion noted on xray, and lower extremity edema. - Start metoprolol and lisinopril. - Patient will need close follow up with Cardiology. We are also helping to arrange a PCP for him prior to discharge. - (3) Hypertension Comment: - BP elevated but much improved. - Continue cardizem, amlodipine, low dose metoprolol, and low dose lisinopril. - Patient will need close follow up with cardiology. (4) Pulmonary hypertension Comment: - Asymptomatic, no O2 requirement. - Patient advised about severe pulm hypertension. Plan for close follow up with cardiology. May benefit from pulmonology follow up at some point. (5) ASD (atrial septal defect) Comment: - Asymptomatic. Follow up cardiology. (6) Full code status (7) DVT prophylaxis Comment: - xarelto. Status and Disposition: OBV. Discharge to home with planned follow up with PCP and cardiology.
[2016-09-17] MEDS ORDERED: Metoprolol Tartrate TAB* 25 MG PO SCH (11:00)
[2016-09-17] MEDS ORDERED: Lisinopril TAB* 5 MG PO SCH (11:00)
[2016-09-17] MEDS ORDERED: Diltiazem CD CAP* 240 MG PO ONE (12:10)
[2016-09-17 16:57] VITALS: BP 158/90
--- NOTE | 2016-09-18 08:40 | DS ---
DISCHARGE SUMMARY: DATE OF ADMISSION: 09/16/16 DATE OF DISCHARGE: 09/17/16 PRIMARY CARE PHYSICIAN: To be arranged. ATTENDING PHYSICIAN: Dr. Aldo Portillo* (dictation provided by Clayton Azevedo NP ) PRIMARY DIAGNOSES: 1. Atrial fibrillation with rapid ventricular response, now rate controlled. 2. Severe uncontrolled hypertension. 3. New systolic congestive heart failure with left ventricular hypertrophy. 4. Atrial septal defect. 5. Severe pulmonary hypertension. 6. Suspected chronic CKD. MEDICATIONS AT THE TIME OF DISCHARGE: 1. Diltiazem CD 240 mg p.o. daily. 2. Furosemide 20 mg p.o. daily. 3. Lisinopril 5 mg p.o. daily. 4. Metoprolol tartrate 12.5 mg p.o. q. 12 hours. 5. Xarelto 20 mg p.o. daily. 6. Amlodipine 5 mg p.o. daily. HOSPITAL COURSE: Mr. Lopez is a 60-year-old male with no known past medical history, has not followed with medical care, who presented to [facility] on 09/15/16 out of concern for weakness in his left knee. While there, he was found to be in atrial fibrillation with rapid ventricular response and had severe uncontrolled hypertension. Mr. Lopez presented to the emergency room where his heart rate was found to be in the 120s and systolic blood pressure was in the 220s. Mr. Lopez was admitted to the hospital. He was initially on a Cardizem drip, but was quickly transitioned to oral Cardizem with good control of his rate. His blood pressure remained elevated, and he is now on amlodipine as well as long-acting diltiazem. He had a transthoracic echocardiogram which was read as follows: "Moderate to severe concentric left ventricular hypertrophy is observed. There is global hypokinesis of the left ventricle with minor regional variation. There is moderate to severely decreased left ventricular systolic function. The estimated ejection fraction is 30 to 35% with septal flattening of the intraventricular septum consistent with right ventricular volume or pressure overload. The right ventricular global systolic function is moderately reduced. The right atrial cavity size is severely dilated. Atrial septal defect is demonstrated by color Doppler. The aortic valve leaflets are mildly thickened. There is trace of aortic regurgitation. The mitral valve leaflets are mildly thickened. There is trace of mitral regurgitation. There is moderate tricuspid regurgitation. There is evidence of severe pulmonary hypertension. There is no significant pericardial effusion." Given that the patient had hypertension and newly-diagnosed congestive heart failure, he has CHADs-VASc2 score of 2 and, therefore, was started on Xarelto. Mr. Lopez' workup included a venous Doppler study to the bilateral lower extremities due to elevated D-dimer on arrival of 430. The Doppler study was read as follows: "No right or left lower extremity DVT. There is occlusion of the right superficial femoral artery in the mid portion." On assessment, patient had warm bilateral lower extremities with positive pulses via the bedside Doppler. He reported having long-term swelling to bilateral lower extremities that was chronic in nature. I suspect that the clot noted on the femoral artery is chronic, related to peripheral vascular disease. Patient also had a VQ lung scan. A CTA of the chest was not possible as patient's initial BUN and creatinine were elevated at 44 and 1.61 respectively. The VQ scan was read as follows: "No perfusion defects evident to raise concern for pulmonary embolism. Bilateral air trapping indicating obstructive lung disease , prominent central pulmonary vasculature with peripheral attenuation suggests probable pulmonary arterial hypertension." In summary, it appears that Mr. Lopez has an atrial septal defect which led to severe pulmonary hypertension. He has severe chronic uncontrolled hypertension which has led to significant left ventricular hypertrophy. His AFib is likely also exacerbated by the fact that he drinks large amounts of caffeine daily, has low potassium and has low magnesium. His electrolytes were repleted during the hospitalization and I have counseled him about decreasing his caffeine use. I also suspect that he has COPD with his jail history of smoking. Despite these multiple new medical problems, Mr. Lopez is feeling quite well. From his perspective, he is asymptomatic other than having some lower extremity edema at times. He will be discharged to home on new medications as mentioned above for AFib, CHF, and hypertension. Prior to his admission, he did not have a primary care physician, but our team is looking to set that up for him, and I have strongly encouraged him to follow up with Cardiology as well. DISPOSITION: Home. DIET: Low salt. ACTIVITY: As tolerated. FOLLOWUP PLANS: 1. Please followup with primary care physician as arranged for your prior to discharge. 2. Please followup with Cardiology; patient has been instructed to make an appointment. TIME SPENT: Approximately 75 minutes were spent in the discharge of this patient, more than half of the time was spent with the patient at the bedside reviewing the events leading up to this hospitalization, performing the physical examination, and reviewing my plan of care. CLAYTON AZEVEDO NP [id number]/[facility] #: [id number] JOSÉ MIGUEL
== END 2016-09-17 17:05 | disposition home or self-care (01) ==
LOC: ED 11:56 → MEDTELE 13:32
PROVIDERS: ADMIT Internal Medicine; ATTEND Internal Medicine
DX: I48.91 Unspecified atrial fibrillation (principal); I10 Essential (primary) hypertension; I50.20 Unspecified systolic (congestive) heart failure; R74.8 Abnormal levels of other serum enzymes; Q21.1 Atrial septal defect; I27.2 Other secondary pulmonary hypertension; N28.9 Disorder of kidney and ureter, unspecified; I51.7 Cardiomegaly; I77.1 Stricture of artery; R60.9 Edema, unspecified; Z79.899 Other long term (current) drug therapy; F17.210 Nicotine dependence, cigarettes, uncomplicated; Z79.01 Long term (current) use of anticoagulants
CPT/HCPCS: 36415; 71010; 78582; 80048; 80053; 80061; 81003; 81015; 82550; 82553; 83036; 83605; 83690; 83735; 83880; 84443; 84484; 85025; 85379; 85610; 85730; 86140; 93005; 93306; 93970; 96361; 96365; 96366; 96367; 96375; 99291; A9270-GY; A9540; A9558; G0378; J0360; J1940